=== PATIENT | female | born 1945 | race Caucasian/White ===

== ENCOUNTER → 2016-06-29 | Outpatient (CLI) | payer MEDICARE, OTHER ==
--- NOTE | 2016-06-30 11:51 | BD ---
EXAMINATION TYPE: MG DEXA axial skeleton. DATE OF EXAM: 06/29/2016 4:22 PM COMPARISON: NONE CLINICAL HISTORY: Height: 5 ft 1 1/4 in Weight: 142 FRAX RISK QUESTIONS: Alcohol (3 or more units per day): YES Family History (Parent hip fracture): NO Glucocorticoids (More than 3mos): NO (Ex: prednisone, prednisolone, methylprednisolone, dexamethasone, and hydrocortisone). History of Fracture in Adulthood: NO Secondary Osteoporosis: 1. Type 1 Diabetes: NO 2. Hyperthyroidism: YES 3. Menopause before 45: YES 4. Malnutrition: NO 5. Chronic liver disease: NO Rheumatoid Arthritis: NO Current Tobacco Use: NO RISK FACTORS HISTORY OF: Drink Alcohol: YES Active: NO Postmenopausal woman: TOTAL HYST AGE 42 Take estrogen and/or progesterone medications: NO LONGER TAKES MEDICATIONS: Thyroid Medications: YES Which medication: LEVOTHYROXINE How Lon YRS Additional Medications: LEVOTHYROXINE Additional History: EXAM MEASUREMENTS: Bone mineral densitometry was performed using the [employer] System. Bone mineral density as measured about the Lumbar spine is: ----- L1-L4(G/cm2): 0.966 T Score Values are as follows: ----- L2: -2.0 ----- L3: -1.5 ----- L4: -2.1 ----- L1-L4: -1.8 Bone mineral density has: Decreased -7.6 % since study of: 2008 Bone mineral density about the R hip (g/cm2): 0.804 Bone mineral density about the L hip (g/cm2): 0.845 T Score values are as follows: -----R Neck: -1.7 -----L Neck: -1.4 -----R Intertrochanter: -2.3 -----L Intertrochanter: -1.9 Bone mineral density has: Decreased -10.9% since study of: 2008 IMPRESSION: Osteopenia (T Score between -2.5 and -1 as noted by T score values There is slightly increased risk of fracture and the patient may be considered for treatment. Re-Screen 1-2 years. [facility] NOTE: T-SCORE=SD OF THE YOUNG ADULT MEAN.
--- NOTE | 2016-07-05 10:00 | MM ---
Reason for exam: screening (asymptomatic). Last mammogram was performed 1 year and 6 months ago. History: Patient is postmenopausal. Cyst aspiration of the right breast, June 1999. Took estrogen beginning at age 42. Physical Findings: A clinical breast exam by your physician is recommended on an annual basis and results should be correlated with mammographic findings. MG 3D Screening Mammo W/Cad Bilateral CC and MLO view(s) were taken. Prior study comparison: December 26, 2014, mammogram, performed at [facility]. November 01, 2013, mammogram, performed at [facility]. There are scattered fibroglandular densities. There is no discrete abnormality. No significant changes when compared with prior studies. ASSESSMENT: Negative, BI-RAD 1 RECOMMENDATION: Routine screening mammogram of both breasts in 1 year.
== END | disposition home or self-care (01) ==
LOC: RADMAMWWP 15:39
PROVIDERS: ATTEND Family Medicine
DX: Z12.31 Encounter for screening mammogram for malignant neoplasm of breast (principal); M85.852 Other specified disorders of bone density and structure, left thigh; M85.851 Other specified disorders of bone density and structure, right thigh; M85.88 Other specified disorders of bone density and structure, other site
CPT/HCPCS: 77080; 77063; G0202

== ENCOUNTER → 2018-09-07 | Outpatient (CLI) | payer MEDICARE, OTHER ==
--- NOTE | 2018-09-07 09:28 | BD ---
EXAMINATION TYPE: Axial Bone Density DATE OF EXAM: 09/07/2018 COMPARISON: NONE CLINICAL HISTORY: Long-term steroid use. Height: 5 FT 1 1/4 IN Weight: 152 FRAX RISK QUESTIONS: Glucocorticoids (More than 3mos): YES (Ex: prednisone, prednisolone, methylprednisolone, dexamethasone, and hydrocortisone). Secondary Osteoporosis: MENOPAUSE BEFORE AGE 45 : YES RISK FACTORS HISTORY OF: Active: YES Postmenopausal woman: TOTAL HYST AGE [age] Take estrogen and/or progesterone medications: TOOK HRT FROM AGE [age] FOR 17 YEARS Poor Health: FAIR MEDICATIONS: Prednisone or other steroids: YES How Lon MONTHS Thyroid Medications: YES Which medication: LIBRARIAN HEAD THYROID How Lon YEARS Additional Medications: PREDISONE, LIBRARIAN HEAD THYROID, BLOOD PRESSURE MEDS, Additional History: EXAM MEASUREMENTS: Bone mineral densitometry was performed using the [employer] System. Bone mineral density as measured about the Lumbar spine is: ----- L1-L4(G/cm2): 0.974 T Score Values are as follows: ----- L2: -2.3 ----- L3: -0.9 ----- L4: -1.9 ----- L1-L4: -1.7 Bone mineral density has: INCREASED 2.6 % since study of: 2017 Bone mineral density about the R hip (g/cm2): 0.787 Bone mineral density about the L hip (g/cm2): 0.808 T Score values are as follows: -----R Neck: -1.8 -----L Neck: -1.7 -----R Total: -1.6 -----L Total: -1.4 Bone mineral density has: DECREASED -2.0 % since study of: 2017 IMPRESSION: Osteopenia (T Score between -2.5 and -1). There is slightly increased risk of fracture and the patient may be considered for treatment. Re-Screen 2-5 years. NOTE: T-SCORE=SD OF THE YOUNG ADULT MEAN.
--- NOTE | 2018-09-07 11:58 | MM ---
Reason for exam: screening (asymptomatic). Last mammogram was performed 2 years and 2 months ago. History: Patient is postmenopausal. Family history of breast cancer in maternal aunt. Cyst aspiration of the right breast, June 1999. Took estrogen beginning at age 42. Physical Findings: A clinical breast exam by your physician is recommended on an annual basis and results should be correlated with mammographic findings. MG 3D Screening Mammo W/Cad Bilateral CC and MLO view(s) were taken. Prior study comparison: June 29, 2016, bilateral MG 3d screening mammo w/cad. December 26, 2014, mammogram, performed at [facility]. There are scattered fibroglandular densities. There are benign appearing round calcifications in the left breast. Previous mammotome biopsy in the right breast. There is no discrete abnormality. ASSESSMENT: Benign, BI-RAD 2 RECOMMENDATION: Routine screening mammogram of both breasts in 1 year.
== END | disposition home or self-care (01) ==
LOC: RADMAMWWP 07:02
PROVIDERS: ATTEND Family Medicine
DX: Z12.31 Encounter for screening mammogram for malignant neoplasm of breast (principal); M85.80 Other specified disorders of bone density and structure, unspecified site; Z79.52 Long term (current) use of systemic steroids
CPT/HCPCS: 77063; 77067; 77080

== ENCOUNTER → 2018-09-20 | Outpatient (CLI) | payer MEDICARE, OTHER ==
--- NOTE | 2018-09-20 14:11 | XR ---
EXAMINATION TYPE: XR lumbosacral spine min 4V DATE OF EXAM: 09/20/2018 CLINICAL HISTORY: Low back pain. TECHNIQUE: Frontal, lateral, and oblique images of the lumbar spine are obtained. COMPARISON: None FINDINGS: There are 5 lumbar type vertebral bodies identified. The lumbar spine shows slight dextro convex scoliotic curvature centered L4 level without evidence of acute fracture or dislocation. Mild disc space narrowing L3-L4 level is seen. Vertebral body heights and disk space heights otherwise ar e within normal limits. There is mild multilevel anterior and lateral spurring. Some facet arthropat hy lower lumbar spine is present. The oblique images appear within normal limits. Vascular calcificat ion overlying abdominal aorta is noted. IMPRESSION: As above.
--- NOTE | 2018-09-20 14:13 | XR ---
EXAMINATION TYPE: XR thoracic spine complete DATE OF EXAM: 09/20/2018 CLINICAL HISTORY: Mid back pain into right flank. TECHNIQUE: Frontal, lateral, and swimmer's view of thoracic spine are obtained. COMPARISON: None. FINDINGS: Thoracic spine show satisfactory alignment without evidence of acute fracture or dislocatio n. Vertebral body heights appear preserved. There is moderate multilevel anterior and lateral spurri ng mid to lower thoracic spine with mild multilevel disc space narrowing in the mid thoracic spine. V isualized ribs are unremarkable bilaterally. There is oval 1.0 cm density between right posterior 1 1th and 12th ribs could reflect gallstone masses outside right superior renal margin. IMPRESSION: ABOVE.
== END | disposition home or self-care (01) ==
LOC: RADXRYALE 13:31
PROVIDERS: ATTEND Nurse Practitioner
DX: M99.72 Connective tissue and disc stenosis of intervertebral foramina of thoracic region (principal); M99.73 Connective tissue and disc stenosis of intervertebral foramina of lumbar region; M46.96 Unspecified inflammatory spondylopathy, lumbar region
CPT/HCPCS: 72072; 72110

== ENCOUNTER → 2018-10-16 | Outpatient (CLI) | payer MEDICARE, OTHER | END | disposition home or self-care (01) | LOC: RADBDWWP 09:49 | PROVIDERS: ATTEND Student in an Organized Health Care Education/Training Program | DX: Z53.9 Procedure and treatment not carried out, unspecified reason (principal) ==

== ENCOUNTER → 2018-10-17 | Outpatient (CLI) | payer MEDICARE, OTHER ==
--- NOTE | 2018-10-17 17:39 | MR ---
EXAMINATION TYPE: MR iac wo/w con DATE OF EXAM: 10/17/2018 COMPARISON: HISTORY: Dizziness, sudden onset lt sided hearing loss TECHNIQUE: Multiplanar, multisequence images of the brain and brainstem is performed without and with IV contras t, utilizing 7 mL intravenous Gadavist . FINDINGS: Diffusion weighted images demonstrate no evidence of a recent infarct or other diffusion ab normality. There is mild to moderate generalized degenerative change. Diffuse and focal areas of abnormal signal the white matter are nonspecific vascular ischemia. There is heterogeneous signal within the calvari um. There is no evidence of cerebellopontine angle mass. No pathologic enhancement of the nerve complex. No diagnostic evidence of schwannoma. Mastoid air cells appear clear. There are changes of chronic sinusitis. Optic nerves are somewhat ect atic with trace amount of fluid noted. Craniocervical junction maintained and sella turcica has a nor mal appearance. IMPRESSION: 1. No evidence of cerebellopontine angle mass or acoustic schwannoma. 2. Degenerative and nonspecific white matter changes most typical remote microvascular cyst anemia. 3. There is heterogeneous signal with enhancement within the calvarium bilaterally. This is a nonspec ific finding. Calvarium is only partially included by MRI of the IACs. Recommend dedicated CT scan of the brain with bone Windows to assess for intraosseous lesions. 4. Ectasia of the optic nerves with a trace amount of fluid surrounding the bilateral optic nerves. T here is no flattening of the posterior margin of the globe. This may be incidental, correlate clinica lly to exclude papilledema or increased intracranial hypertension.
== END ==
LOC: RADMRIMAIN 13:44
PROVIDERS: ATTEND Student in an Organized Health Care Education/Training Program
DX: G31.9 Degenerative disease of nervous system, unspecified (principal); H47.099 Other disorders of optic nerve, not elsewhere classified, unspecified eye; R90.89 Other abnormal findings on diagnostic imaging of central nervous system; R93.0 Abnormal findings on diagnostic imaging of skull and head, not elsewhere classified
CPT/HCPCS: 70553; A9585

== ENCOUNTER → 2018-11-01 | Outpatient (CLI) | payer MEDICARE, OTHER ==
--- NOTE | 2018-11-01 15:16 | CT ---
EXAMINATION TYPE: CT brain wo con DATE OF EXAM: 11/01/2018 COMPARISON: None HISTORY: dizziness, loss of hearing to left ear. abnormal head MR. CT DLP: 1090.[address] of the brain was performed. The ventricles, basal cisterns and sulci overlying the cerebral convexities demonstrate mild enlargem ent. There is no evidence for intracranial hemorrhage or sulcal effacement. There is decreased attenuation about the periventricular white matter and deep white matter of both c erebral hemispheres, compatible with chronic small vessel ischemia. Differential diagnosis does inclu de demyelination. No mass effects are seen.No midline shift. Osseous calvarium is intact. Air-fluid level left maxillary sinus compatible with acute sinusitis. If symptoms persist consider MRI. IMPRESSION: 1. Age related atrophic and chronic small vessel ischemic change without acute intracranial process s een at this time.
== END | disposition home or self-care (01) ==
LOC: RADCTMAIN 14:10
PROVIDERS: ATTEND Student in an Organized Health Care Education/Training Program
DX: G31.1 Senile degeneration of brain, not elsewhere classified (principal); I67.82 Cerebral ischemia; M95.9 Acquired deformity of musculoskeletal system, unspecified
CPT/HCPCS: 70450

== ENCOUNTER → 2019-02-13 | Outpatient (CLI) | payer MEDICARE, OTHER ==
[2019-02-13 08:31] LABS: African American GFR (CKD) >90 (>60 ml/min/1.73 sqM); Blood Urea Nitrogen 21 mg/dL (7-17)
--- NOTE | 2019-02-13 10:40 | CT ---
EXAMINATION TYPE: CT soft tissue neck w con DATE OF EXAM: 02/13/2019 HISTORY: Swelling, mass or lump COMPARISON: NONE CT DLP: 343.00 mGycm. Automated Exposure Control for Dose Reduction was Utilized. TECHNIQUE: CT scan of the neck is performed with IV Contrast, patient injected with 100 ml mL of Iso dinora 300, axial images are obtained, coronal and sagittal reformatted images are reviewed. FINDINGS: Airway: Small sized thyroid. Parotid/submandibular glands: No gross abnormality seen. Carotid/Vascular Structures: Mild calcified plaque right carotid bulb extending into proximal interna l carotid artery. No significant stenosis is evident. Osseous Structures: Mild to moderate disc space narrowing and mild spurring C5-C6 level. Slight grade 1 retrolisthesis C5 on C6 . Other: A metallic BB is placed at site of palpable abnormality left neck axial image 33 which is at l evel of vocal cords roughly C5 level. There is small caliber densely opacified peripheral draining ve in at this level which has some tortuosity and branching vessels. Adjacent sternocleidomastoid mastoi d muscle is felt within normal limits. No worrisome solid or cystic mass or fluid collection is clear ly seen at this level. No suspicious greater than 1 cm neck adenopathy. Parapharyngeal fat spaces are symmetric and maintain ed. IMPRESSION: No suspicious abnormality at area of clinical concern left neck.
== END | disposition home or self-care (01) ==
LOC: RADCTMAIN 07:49
PROVIDERS: ATTEND Family Medicine
DX: R22.1 Localized swelling, mass and lump, neck (principal)
CPT/HCPCS: 82565; 84520; 70491; 36415; Q9967

== ENCOUNTER → 2020-04-14 | Outpatient (CLI) | payer MEDICARE, OTHER ==
--- NOTE | 2020-04-14 12:27 | CT ---
EXAMINATION TYPE: CT brain wo con DATE OF EXAM: 04/14/2020 HISTORY: Headache. CT DLP: 1117 mGycm. Automated Exposure Control for Dose Reduction was Utilized. TECHNIQUE: CT scan of the head is performed without contrast. COMPARISON: CT brain November 01, 2018. FINDINGS: There is no acute intracranial hemorrhage or midline shift identified. There is diffuse v entricular and sulcal prominence consistent with diffuse age-related cerebral atrophy. There is low- attenuation in the periventricular white matter consistent with chronic small vessel ischemic change. The globes are intact and the visualized sinuses are clear. Prominent lucent areas appear to pred ominantly localize to cortical vessels in the calvarium bilaterally. Correlate clinically. Cannot exc lude underlying lytic lesions. Differential would include multiple myeloma and osseous metastatic dis ease. IMPRESSION: No acute intracranial hemorrhage or midline shift. There is mild diffuse age-related ce rebral atrophy and chronic small vessel ischemic change redemonstrated. No significant change from p rior.
== END | disposition home or self-care (01) ==
LOC: RADCTMAIN 11:35
PROVIDERS: ATTEND Family Medicine
DX: G31.1 Senile degeneration of brain, not elsewhere classified (principal); R51.9 Headache, unspecified; I67.82 Cerebral ischemia
CPT/HCPCS: 70450

== ENCOUNTER → 2020-08-12 | Outpatient (CLI) | payer MEDICARE, OTHER ==
[2020-08-12 15:06] LABS: African American GFR (CKD) >90 (>60 ml/min/1.73 sqM); Blood Urea Nitrogen 20 mg/dL (7-17); Non-African American GFR(CKD) 85 (>60 ml/min/1.73 sqM)
--- NOTE | 2020-08-13 09:54 | CT ---
EXAMINATION TYPE: CT abdomen w con DATE OF EXAM: 08/12/2020 COMPARISON: None HISTORY: LUQ pain, abdominal tenderness, bowel changes, family hx colon ca CT DLP: 637.70 mGycm Automated exposure control for dose reduction was used. TECHNIQUE: Helical acquisition of images was performed from the lung bases through the top of iliac crest to include entire abdomen. CONTRAST: Performed with Oral Contrast and with IV Contrast, patient injected with 100 mL of Isovue 300. FINDINGS: Atheromatous changes are present within the aorta LUNG BASES: No significant abnormality is appreciated. LIVER/GB: Low-attenuation present diffusely within the liver, dependent high attenuation within the g allbladder suggests possible tumefactive sludge. PANCREAS: No significant abnormality is seen. SPLEEN: No significant abnormality is seen. ADRENALS: No significant abnormality is seen. KIDNEYS: Parapelvic cysts present within the left kidney, cortical cyst present at the lower pole is subcentimeter in size, cortical cyst present at the midpole posteriorly right kidney measures 2.2 cm, no nephrolithiasis is evident BOWEL: There is a sizable duodenal diverticulum at the head of the pancreas with air debris level. T here is a hiatal hernia present. Retained fecal debris present throughout the distribution of the col on LYMPH NODES: No significant abnormality is appreciated. OSSEOUS STRUCTURES: Degenerative disc changes are present in the visualized spine FREE AIR: No Free Air visible ASCITES: None visible. RETROPERITONEAL ADENOPATHY: No Retroperitoneal Adenopathy visible. OTHER: Contrast has not coursed throughout the bowel which could limit evaluation. IMPRESSION: CORRELATE FOR FECAL STASIS. HEPATIC STEATOSIS, POSSIBLE TUMEFACTIVE SLUDGE WITHIN THE GALLBLADDER. HI ATAL HERNIA, DUODENAL DIVERTICULUM. ADDITIONAL FINDINGS ABOVE.
== END ==
LOC: RADCTMAIN 14:15
PROVIDERS: ATTEND Family Medicine
DX: K76.0 Fatty (change of) liver, not elsewhere classified (principal); K44.9 Diaphragmatic hernia without obstruction or gangrene; K57.10 Diverticulosis of small intestine without perforation or abscess without bleeding
CPT/HCPCS: 82565; 84520; 74160; 36415; Q9967

== ENCOUNTER → 2020-11-18 | Outpatient (CLI) | payer MEDICARE, OTHER ==
--- NOTE | 2020-11-20 08:31 | MM ---
Reason for exam: screening (asymptomatic). Last mammogram was performed 2 years and 2 months ago. History: Patient is postmenopausal. Family history of breast cancer in maternal aunt. Cyst aspiration of the right breast, June 1999. Took estrogen beginning at age 42. Physical Findings: A clinical breast exam by your physician is recommended on an annual basis and results should be correlated with mammographic findings. MG 3D Screening Mammo W/Cad Bilateral CC and MLO view(s) were taken. Prior study comparison: September 07, 2018, bilateral MG 3d screening mammo w/cad. June 29, 2016, bilateral MG 3d screening mammo w/cad. There are benign appearing round calcifications bilaterally. Previous mammotome biopsy in the right breast. There is no discrete abnormality. ASSESSMENT: Benign, BI-RAD 2 RECOMMENDATION: Routine screening mammogram of both breasts in 1 year.
== END | disposition home or self-care (01) ==
LOC: RADMAMWWP 14:55
PROVIDERS: ATTEND Family Medicine
DX: Z12.31 Encounter for screening mammogram for malignant neoplasm of breast (principal); Z78.0 Asymptomatic menopausal state; Z80.3 Family history of malignant neoplasm of breast
CPT/HCPCS: 77063; 77067

== ENCOUNTER → 2021-10-29 | Outpatient (CLI) | payer MEDICARE, OTHER ==
--- NOTE | 2021-10-29 22:24 | XR ---
EXAMINATION TYPE: XR pelvis AP view, XR Hip Bilateral Complete DATE OF EXAM: 10/29/2021 CLINICAL HISTORY: Pelvic and bilateral hip pain after recent fall injury. TECHNIQUE: A single AP view of the pelvis is obtained. Two views of the bilateral hip are obtained. COMPARISON: None. FINDINGS: There is no acute fracture/dislocation evident in the pelvis. The sacroiliac joints appear symmetric and are felt within normal limits. Pubic symphysis is narrowed with sclerosis . There is mild to mo derate axial joint space loss in both hips present. The overlying soft tissue appears unremarkable. Two views of bilateral hips show no acute fracture or dislocation. No focal lytic or sclerotic lesio n seen in the proximal femurs bilaterally. The overlying soft tissue is unremarkable. IMPRESSION: There is no acute fracture or dislocation in the pelvis or either hip.
--- NOTE | 2021-10-29 22:27 | XR ---
EXAMINATION TYPE: XR lumbosacral spine min 4V DATE OF EXAM: 10/29/2021 CLINICAL HISTORY: Low back pain after recent fall injury TECHNIQUE: Frontal, lateral, and oblique images of the lumbar spine are obtained. COMPARISON: Lumbar spine x-ray September 20, 2018 FINDINGS: There are 5 lumbar type vertebral bodies redemonstrated. The lumbar spine shows stable an d satisfactory alignment without evidence of acute fracture or dislocation. Vertebral body heights re main within normal limits. The oblique images appear within normal limits. Mild disc space narrowin g L2-L3 and L3-L4 levels redemonstrated. Mild multilevel anterior spurring redemonstrated. Mild-to-mo derate overlying arterial vascular calcification redemonstrated. IMPRESSION: As above.
--- NOTE | 2021-10-29 22:29 | XR ---
EXAMINATION TYPE: XR thoracic spine 2V DATE OF EXAM: 10/29/2021 CLINICAL HISTORY: Recent fall injury with pain. TECHNIQUE: Frontal, lateral, and swimmer's view of thoracic spine are obtained. COMPARISON: Thoracic spine x-ray September 20, 2018. FINDINGS: Thoracic spine demonstrates scoliotic curvature alignment without evidence of acute fractur e or dislocation. Vertebral body heights remain preserved. Moderate multilevel anterior and lateral spurring with areas of mild disc space narrowing in the midthoracic spine redemonstrated. Visualized ribs are intact bilaterally. Curvilinear 1.0 cm density right upper quadrant could reflect basilar ca lcified nodule or granuloma near the 11th rib unchanged from prior. IMPRESSION: No acute fracture or dislocation is seen in the thoracic spine. No significant change fr om prior.
== END | disposition home or self-care (01) ==
LOC: RADXRYALE 16:14
PROVIDERS: ATTEND Family Medicine
DX: S39.93XA Unspecified injury of pelvis, initial encounter (principal); S39.92XA Unspecified injury of lower back, initial encounter; M25.552 Pain in left hip; M25.551 Pain in right hip; R10.2 Pelvic and perineal pain; M51.86 Other intervertebral disc disorders, lumbar region; W19.XXXA Unspecified fall, initial encounter
CPT/HCPCS: 72070; 72110; 72170; 73521

== ENCOUNTER → 2021-11-17 | Outpatient (CLI) | payer MEDICARE, OTHER ==
--- NOTE | 2021-11-17 21:36 | CT ---
"EXAMINATION TYPE: CT abdomen pelvis w con DATE OF EXAM: 11/17/2021 COMPARISON: CT dated 08/12/2020 HISTORY: LUQ pain CT DLP: 957 mGycm Automated exposure control for dose reduction was used. TECHNIQUE: Helical acquisition of images was performed from the lung bases through the pelvis. CONTRAST: Performed with Oral Contrast and with IV Contrast, patient injected with 100 mL of Isovue 300. FINDINGS: LUNG BASES: No significant abnormality is appreciated. LIVER/GB: No significant abnormality is appreciated. PANCREAS: No significant abnormality is seen. SPLEEN: No significant abnormality is seen. ADRENALS: No significant abnormality is seen. KIDNEYS: Bilateral renal cysts without suspicious feature, otherwise unremarkable kidneys. FREE AIR: No free air is visualized. RETROPERITONEAL ADENOPATHY: None visualized REPRODUCTIVE ORGANS: Previous hysterectomy. No gross adnexal mass. URINARY BLADDER: No significant abnormality is seen. PELVIC ADENOPATHY: No neurologically enlarged pelvic lymph nodes. OSSEOUS STRUCTURES: Degenerative changes of the symphysis pubis and sacroiliac joints. T8 vertebral body hemangioma. BOWEL: Small sliding hiatal hernia, otherwise unremarkable stomach. Duodenal diverticula measuring u p to 4.7 cm. Unremarkable small bowel. Colonic diverticulosis most evident involving the sigmoid colo n. Suspected mild acute diverticulitis involving the midportion of the descending colon. No definite abscess formation or signs of perforation. Moderate fecal loading of the colon. OTHER: Arterial atherosclerotic calcifications. No sizable ascites. Small right fat-containing inguin al hernia. IMPRESSION: Suspected mild acute diverticulitis of the midportion of the descending colon as described above, ple ase correlate clinically. No evidence of abscess formation or signs of perforation. Other incidental findings as described above. A [place] level critical message alert has been initiated for Cintia Almonte DO via the [employer] 36 0 | Critical Results System on 11/17/2021 9:34 PM. This message alert has been sent to Cintia Almonte DO via the preferences provided by the clinician for the receipt of Radiology Critical Findings. [facility] ID [id number]."
== END | disposition home or self-care (01) ==
LOC: RADCTMAIN 13:27
PROVIDERS: ATTEND Family Medicine
DX: R10.12 Left upper quadrant pain (principal)
CPT/HCPCS: 74177; Q9967 ×2

== ENCOUNTER → 2022-03-18 | Outpatient (CLI) | payer MEDICARE, OTHER ==
--- NOTE | 2022-03-18 09:25 | XR ---
EXAMINATION TYPE: XR ribs LT w pa chest xray DATE OF EXAM: 03/18/2022 9:18 AM INDICATION: Patient age:Female; 76 years old; Reason for study: [id number] INTERCOSTAL PAIN; [facility]. COMPARISON: None TECHNIQUE: Frontal and oblique views of the left ribs. FINDINGS: The ribs have a normal appearance. No evidence of fracture. Overall, the lungs are clear. The cardiac silhouette is normal in size. Atherosclerotic calcification of the aorta. The remaining osseous structures are intact. IMPRESSION RIBS: No acute osseous pathology.
== END | disposition home or self-care (01) ==
LOC: RADXRYALE 09:00
PROVIDERS: ATTEND Family Medicine
DX: R07.82 Intercostal pain (principal)

== ENCOUNTER → 2022-09-09 | Outpatient (CLI) | payer MEDICARE ==
[~2022-09-09] MED LIST: DOBUTamine DRIP for NUC MED 500 MG in DEXTROSE/WATER 1 250ML.BAG IV PRN
--- NOTE | 2022-09-09 17:13 | BD ---
EXAMINATION TYPE: Axial Bone Density DATE OF EXAM: 09/09/2022 CLINICAL HISTORY: 76 years old Female. ICD-10 CODE: Z78.0 ASYMOTOMATIC MENOPAUSAL Nuclear Medicine Study in the last 2 weeks: stress test today,pt states no contrast injected Height: 61.2 Weight: 146 FRAX RISK QUESTIONS: Secondary Osteoporosis: yes 3. Menopause before 45: yes RISK FACTORS HISTORY OF: Postmenopausal woman: yes, at age 40 yrs old, total hyst Take estrogen and/or progesterone medications: yes, for about 15 yrs Hyperparathyroidism: no Adrenal Insufficiency: no MEDICATIONS: Thyroid Medications: yes, for about 45 yrs Additional Medications: bp meds, cholesterol meds, vit d3 Additional History: hypertension, cholesterol, thyroid, early menopause, hx of hormones EXAM MEASUREMENTS: Bone mineral densitometry was performed using the [employer] System. Bone mineral density as measured about the Lumbar spine is: ----- L1-L4(G/cm2): 0.969 T Score Values are as follows: ----- L1: -0.9 ----- L2: -2.8 ----- L3: -1.5 ----- L4: -1.9 ----- L1-L4: -1.8 Z Score Values are as follows: ----- L1: 0.8 ----- L2: -1.0 ----- L3: 0.3 ----- L4: -0.1 ----- L1-L4: 0.0 Bone mineral density has: Decreased -0.5% since study of: 09.07.2018 Bone mineral density about the R hip (g/cm2): 0.764 Bone mineral density about the L hip (g/cm2): 0.784 T Score values are as follows: -----R Neck: -1.9 -----L Neck: -1.8 -----R Total: -1.9 -----L Total: -1.8 Z Score values are as follows: -----R Neck: 0.1 -----L Neck: 0.2 -----R Total: 0.0 -----L Total: 0.1 Bone mineral density has: Decreased -5.7% since study of: 09.07.2018 FRAX%s: The graph provided illustrates a 22.4% chance for a major osteoporotic fx and a 7.1% chance f or the hips probability for fx in 10 years time. IMPRESSION: Osteopenia (T Score between -2.5 and -1). There is slightly increased risk of fracture and the patient may be considered for treatment. Re-Screen 2-5 years. NOTE: T-SCORE=SD OF THE YOUNG ADULT MEAN.
--- NOTE | 2022-09-09 17:47 | CA ---
Dobutamine Stress Echocardiogram Report Bernadette Steele Age: 76 Gender: F : 1945 Exam Date: 09/09/2022 10:08 Exam Location: [facility] Ordering Physician: Cintia Almonte DO Referring Physician: SABIHA,, Shot Peening Operator: Peace Wright RDCS Technologist: Ht (in): 61 Wt (lb): 143 Procedure CPT: Indication: R07.89 other chest pain ICD-9 Codes: Rhythm: Patient History: Hypertension, Hyperlipidemia, Family history, Dyspnea/SOB Cardiac Medications: Medications in past 24 hours: Contrast: Total Dose (mL): Stress Results Protocol: Dobutamine Peak Dose (???g/kg/min): 30 Duration (min:sec): Atropine:(mg) Target HR: 121 Double Product: 11608 Resting HR: 64 Resting BP: 155 / 81 Peak HR: 134 Peak BP: 197 / 77 Max Predicted HR: 142 94 % Max Predicted HR Stress Summary: The hemodynamic response to stress was normal. BP Response: Normal Reason for Termination: Exceeded target heart rate (85% max predicted) Cardiac Symptoms: Test terminated after reaching target heart rate (85% max predicted) ECG Analysis Resting EKG: Stress EKG: Arrhythmia: Echo Analysis Base Echo Analysis: Low Echo Anaylsis: Peak Echo Analysis: Recovery Echo: MEASUREMENTS (Male/Female) Normal Values CONCLUSIONS Baseline EKG revealed a normal sinus rhythm without significant ST-T changes. With the dobutamine administration the heart rate went up to 133 bpm. Patient did not have any angina. EKG did not reveal any ST segment changes to indicate ischemia. By EKG criteria this is a unremarkable dobutamine stress test. Baseline echo images revealed normal wall motion wall thickening of all segments. With the dobutamine administration there was progressive increase in contractility involving all segments suggesting that there is no evidence of any stress-induced ischemia on this dobutamine stress echocardiogram Final impression: #1 normal dobutamine stress test by EKG criteria. #2 normal dobutamine stress echocardiogram without evidence of ischemia Dr. Markos Pablo MD (Electronically Signed) Final Date: 09 September 2022 17:46
== END | disposition home or self-care (01) ==
LOC: RADNMMAIN 09:38
PROVIDERS: ATTEND Family Medicine
DX: Z13.820 Encounter for screening for osteoporosis (principal); M85.89 Other specified disorders of bone density and structure, multiple sites; I10 Essential (primary) hypertension; Z78.0 Asymptomatic menopausal state; R07.89 Other chest pain
CPT/HCPCS: 77080; 93351